=== PATIENT | female | born 1960 | race Caucasian/White ===

== ENCOUNTER 2019-09-28 12:08 | Emergency (ER) | payer SELFPAY ==
[2019-09-28] MEDS ORDERED: Cyclobenzaprine 10 MG Tab PO ONE (12:51)
--- NOTE | 2019-09-28 12:53 | EDM.PDOC ---
ED HPI GENERAL MEDICAL PROBLEM - General Chief Complaint: Upper Extremity Injury/Pain Stated Complaint: LEFT SHOULDER PAIN POST SURGERY Time Seen by Provider: 09/28/19 12:47 Source of Information: Reports: Patient, RN Notes Reviewed History Limitations: Reports: No Limitations - History of Present Illness INITIAL COMMENTS - FREE TEXT/NARRATIVE: 51-year-old female presents emergency department today complaint of left shoulder pain, she is 6 weeks postop rotator cuff repair has started doing her exercises proceed with physical therapy she now is experiencing muscle pain. - Related Data Allergies Allergy/AdvReac Type Severity Reaction Status Date / Time chlorpromazine Allergy Lethargy Verified 09/28/19 12:26 [From Thorazine] haloperidol [From Haldol] Allergy Disorientat Verified 09/28/19 12:26 ion Home Meds: Home Meds Albuterol Sulfate [Proair Respiclick] 2 puff IN ASDIRECTED PRN 09/28/19 [History ] Aspirin 81 mg PO DAILY 09/28/19 [History] Escitalopram [Lexapro] 20 mg PO DAILY 09/28/19 [History] Gabapentin [Neurontin] 600 mg PO TID 09/28/19 [History] Insulin Glargine,Hum.Rec.Anlog [Lantus Solostar] 18 units SUBCNJ BEDTIME [History] Insulin Glargine,Hum.Rec.Anlog [Lantus Solostar] 30 units SUBCNJ DAILY 09/28/19 [History] Insulin Regular, Human [HumuLIN R] See Protocol SUBCNJ QID 09/28/19 [History] Lisinopril 40 mg PO DAILY 09/28/19 [History] amLODIPine [Norvasc] 5 mg PO DAILY 09/28/19 [History] atorvaSTATin [Lipitor] 10 mg PO DAILY 09/28/19 [History] cloNIDine [Catapres-TTS 3] 0.3 mg PO BID 09/28/19 [History] lamoTRIgine [Lamictal XR] 200 mg PO DAILY 09/28/19 [History] metFORMIN [Glucophage] 1,000 mg PO BID 09/28/19 [History] traMADol [Ultram] 25 mg PO ASDIRECTED PRN 09/28/19 [History] Past Medical History Cardiovascular History: Reports: High Cholesterol, Hypertension Respiratory History: Reports: Asthma, COPD Genitourinary History: Reports: Chronic Renal Insuffiency [employer]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: Psychiatric History: Reports: Addiction, Anxiety, Depression, Mood Swings, Other (See Below) Other Psychiatric History: Night terros Endocrine/Metabolic History: Reports: Diabetes, Type II - Infectious Disease History Infectious Disease History: Reports: Chicken Pox, Measles - Past Surgical History GI Surgical History: Reports: Cholecystectomy Musculoskeletal Surgical History: Reports: Shoulder Surgery, Other (See Below) Other Musculoskeletal Surgeries/Procedures:: Back surgery x 4 Social & Family History - Tobacco Use Smoking Status *Q: Heavy Tobacco Smoker Years of Tobacco use: 36 Packs/Tins Daily: 0.5 - Caffeine Use Caffeine Use: Reports: Coffee, Energy Drinks, Soda - Recreational Drug Use Recreational Drug Use: Yes Recreational Drug Last Use: over 12 months Review of Systems - Review of Systems Review Of Systems: See Below Musculoskeletal: Reports: Shoulder Pain ED EXAM, GENERAL - Physical Exam Exam: See Below Free Text/Narrative:: Examination of the left shoulder I don't appreciate any erythema there is no edema surgical wounds are clean dry and intact she has limited range of motion secondary to the type a sling she is wearing Exam Limited By: No Limitations General Appearance: Alert, WD/WN, No Apparent Distress Course - Vital Signs Last Recorded V/S: Last Vital Signs Temp 98.6 F 09/28/19 12:37 Pulse 98 09/28/19 12:37 Resp 24 H 09/28/19 12:37 BP 162/89 H 09/28/19 12:37 Pulse Ox 96 09/28/19 12:37 - Orders/Labs/Meds Meds: Medications Discontinued Medications Generic Name Dose Route Start Last Admin Trade Name Carol PRN Reason Stop Dose Admin Cyclobenzaprine HCl 10 mg 09/28/19 12:51 09/28/19 12:58 Flexeril PO 09/28/19 12:52 10 mg ONETIME ONE Administration Departure - Departure Time of Disposition: 13:23 Disposition: Home, Self-Care 01 Condition: Fair Clinical Impression: Muscle spasm of left shoulder area - Discharge Information Referrals: PCP,None [Primary Care Provider] - Forms: ED Department Discharge, ED Return to Work/School Form Additional Instructions: Continue to use your pain medications as prescribed, use the Flexeril as needed for muscle spasm, please establish with a primary care and establish with physical therapy within the next week call return to the emergency department worsening of symptoms - Assessment/Plan Plan: Assessment Acuity = acute Site and laterality = muscle spasm left shoulder Etiology = probably secondary to starting a physical therapy Manifestations = none Location of injury = Home Lab values = none Plan Should good relief with the Flexeril provided in the ED prescription for Flexeril 10 mg by mouth 3 times a day when necessary total #20 she'll follow-up with primary care this week to establish physical therapy in town This note was dictated using [employer] recognition software please call with any questions on syntax or grammar.
== END 2019-09-28 13:54 | disposition home or self-care (01) ==
LOC: JP.ED 12:08
DX: M62.838 Other muscle spasm (principal); I12.9 Hypertensive chronic kidney disease with stage 1 through stage 4 chronic kidney disease, or unspecified chronic kidney disease; E11.22 Type 2 diabetes mellitus with diabetic chronic kidney disease; N18.9 Chronic kidney disease, unspecified; J44.9 Chronic obstructive pulmonary disease, unspecified; E78.5 Hyperlipidemia, unspecified; F17.210 Nicotine dependence, cigarettes, uncomplicated; Z79.4 Long term (current) use of insulin; Z88.8 Allergy status to other drugs, medicaments and biological substances; Z79.82 Long term (current) use of aspirin; Z79.899 Other long term (current) drug therapy
CPT/HCPCS: 99283; A9270

== ENCOUNTER 2020-06-17 07:36 | Day surgery (SDC) | payer MEDICAID ==
[2020-06-17] MEDS ORDERED: Sodium Chloride 0.9% 10 ML Syringe FLUSH ONE (08:00)
--- NOTE | 2020-06-17 15:26 | OR ---
DATE OF PROCEDURE: 06/17/2020 SURGEON: Carey Crews MD POSTOPERATIVE CARE: Postoperative care will be provided mainly at the [address] [place] [address] [facility] in conjunction with [facility]. PREOPERATIVE DIAGNOSIS: Cataract, left eye. POSTOPERATIVE DIAGNOSIS: Cataract, left eye. PROCEDURE: Phacoemulsification with intraocular lens placement, left eye. ANESTHESIA: Topical and intracameral. ESTIMATED BLOOD LOSS: Minimal. COMPLICATIONS: None. PATHOLOGY SPECIMENS: None. SURGICAL FINDINGS: None. INDICATION FOR PROCEDURE: The patient is a 59-year-old female with history of a visually significant cataract in the left eye, which interfered with activities of daily living. This consisted of a nuclear sclerosis cataract. Following careful discussion of the risks, benefits and alternatives to cataract extraction with intraocular lens placement including blindness and , the patient elected to proceed, and informed, written consent was obtained prior to the procedure. DESCRIPTION OF THE PROCEDURE: The patient was previously identified, and a vaibhav placed above the left eye. All sources, including the patient, indicated that the left eye was the correct eye. The patient was subsequently taken to the operating room where standard monitors were applied. The patient was then prepped and draped in the usual sterile fashion for ophthalmic surgery. Attention was first directed at the 12 o'clock position where a paracentesis port was fashioned. Shugar solution followed by Viscoat was instilled into the eye. Attention was then directed to the 8:30 position where a triplanar incision was made in a near-clear manner using a keratome. A continuous capsulorrhexis was then made using a combination of the cystotome and Utrata forceps. Hydrodissection was achieved using a balanced salt solution, and the lens rotated nicely. Phacoemulsification was then done using a modified [id number] technique without complication. Phaco time was 6.15 CDE. The remaining cortex was removed using the irrigation/aspiration handpiece. Provisc was then instilled into the eye. A Technis lens, model PCB00, at 13.0 diopters was then placed in the capsular bag using an [place] injector. The remaining viscoelastic was removed using the irrigation/aspiration forceps. All wounds were then checked and found to be watertight. The lid speculum and drapes were removed. Maxitrol ointment was placed in the patient's left eye, and the eye was shielded. The patient tolerated the procedure well. The patient was instructed to follow up tomorrow. All needle and sponge counts were correct at the end of the procedure. Carey Crews MD /[id number]
== END 2020-06-17 09:35 | disposition home or self-care (01) ==
LOC: JP.SDS 07:36
PROVIDERS: ATTEND Ophthalmology
DX: E11.36 Type 2 diabetes mellitus with diabetic cataract (principal); H25.12 Age-related nuclear cataract, left eye; F17.200 Nicotine dependence, unspecified, uncomplicated; F41.9 Anxiety disorder, unspecified; F32.9 Major depressive disorder, single episode, unspecified

== ENCOUNTER 2020-07-08 06:18 | Day surgery (SDC) | payer MEDICAID ==
[2020-07-08] MEDS ORDERED: Sodium Chloride 0.9% 10 ML Syringe FLUSH ONE (07:00)
[2020-07-08] MEDS ORDERED: Midazolam 1 MG/ML 2 ML SDV ONE (07:33)
--- NOTE | 2020-07-08 15:51 | OR ---
DATE OF PROCEDURE: 07/08/2020 SURGEON: Carey Crews MD POSTOPERATIVE CARE: Postoperative care will be provided mainly at the [address] [place] [address] [facility] in conjunction with [facility]. PREOPERATIVE DIAGNOSIS: Cataract, right eye. POSTOPERATIVE DIAGNOSIS: Cataract, right eye. PROCEDURE: Phacoemulsification with intraocular lens placement, right eye. ANESTHESIA: Topical and intracameral. ESTIMATED BLOOD LOSS: Minimal. COMPLICATIONS: None. PATHOLOGY SPECIMENS: None. SURGICAL FINDINGS: None. INDICATION FOR PROCEDURE: The patient is a 59-year-old female with history of a visually significant cataract in the right eye, which interfered with activities of daily living. This consisted of a nuclear sclerosis cataract. Following careful discussion of the risks, benefits and alternatives to cataract extraction with intraocular lens placement including blindness and , the patient elected to proceed, and informed, written consent was obtained prior to the procedure. DESCRIPTION OF THE PROCEDURE: The patient was previously identified, and a vaibhav placed above the right eye. All sources, including the patient, indicated that the right eye was the correct eye. The patient was subsequently taken to the operating room where standard monitors were applied. The patient was then prepped and draped in the usual sterile fashion for ophthalmic surgery. Attention was first directed at the 12 o'clock position where a paracentesis port was fashioned. Shugar solution followed by Viscoat was instilled into the eye. Attention was then directed to the 8:30 position where a triplanar incision was made in a near-clear manner using a keratome. A continuous capsulorrhexis was then made using a combination of the cystotome and Utrata forceps. Hydrodissection was achieved using a balanced salt solution, and the lens rotated nicely. Phacoemulsification was then done using a modified [id number] technique without complication. Phaco time was 4.75 CDE. The remaining cortex was removed using the irrigation/aspiration handpiece. Provisc was then instilled into the eye. A Technis lens, model PCB00, at 13.0 diopters was then placed in the capsular bag using an [place] injector. The remaining viscoelastic was removed using the irrigation/aspiration forceps. All wounds were then checked and found to be watertight. The lid speculum and drapes were removed. Maxitrol ointment was placed in the patient's right eye, and the eye was shielded. The patient tolerated the procedure well. The patient was instructed to follow up tomorrow. All needle and sponge counts were correct at the end of the procedure. Carey Crews MD /[id number]
== END 2020-07-08 08:32 | disposition home or self-care (01) ==
LOC: JP.SDS 06:18
PROVIDERS: ATTEND Ophthalmology
DX: E11.36 Type 2 diabetes mellitus with diabetic cataract (principal); H25.11 Age-related nuclear cataract, right eye; E11.40 Type 2 diabetes mellitus with diabetic neuropathy, unspecified; Z88.8 Allergy status to other drugs, medicaments and biological substances
CPT/HCPCS: 66984; J2250